=== PATIENT | male | born 1985 | race Caucasian/White ===

== ENCOUNTER 2025-01-29 08:23 | Emergency (ER) | payer MEDICAID ==
[~2025-01-29] VITALS: Ht 180.3 cm; Wt 83.0 kg
[2025-01-29 08:35] VITALS: O2SAT 98
[2025-01-29 09:05] LABS: BASOPHILS % 0.3 % (0.0-2.0); EOSINOPHILS % 1.4 % (0.0-5.0); HEMATOCRIT. 45.7 % (42.0-52.0); LYMPHOCYTES % 12.2 % (20.0-50.0); MEAN CORPUSCULAR HEMOGLOBIN 29.5 pg (28.0-32.0); MEAN CORPUSCULAR HGB CONC 32.8 g/dL (31.0-37.0); MEAN CORPUSCULAR VOLUME 89.9 fL (80.0-94.0); MEAN PLATELET VOLUME 7.8 fl (7.4-10.4); MONOCYTES % 8.6 % (2.0-8.0); NEUTROPHILS % 77.5 % (40.0-76.0); PLATELET 225 x1000/uL (130-400); RED BLOOD CELL COUNT 5.08 mill/uL (4.7-6.1); RED CELL DISTRIBUTION WIDTH 13.6 % (11.6-14.6); WHITE BLOOD COUNT 6.1 x1000/uL (4.5-11.0)
[2025-01-29 09:09] LABS: CARBON DIOXIDE 28 mEq/L (21-32); CHLORIDE 104 mEq/L (98-107); POTASSIUM 4.1 mEq/L (3.5-5.1); SODIUM 140 mEq/L (136-145)
[2025-01-29 09:10] LABS: CALCIUM 9.3 mg/dL (8.7-10.4)
[2025-01-29 09:15] LABS: CREATININE 0.9 mg/dL (0.6-1.3); GLUCOSE 122 mg/dL (70-105); UREA NITROGEN BLOOD 9 mg/dL (9-23)
[2025-01-29] MEDS: MAGNESIUM/ALUMINUM HYDROXIDE/SIMETHICONE 30ML UDC PO ONE (09:32)
[2025-01-29] MEDS ORDERED: DICY-18 MT (09:49)
[2025-01-29] MEDS ORDERED: MAG-55 MT (09:49)
[2025-01-29] MEDS ORDERED: PANT40SU MT (09:49)
[2025-01-29 10:32] VITALS: BP 130/70; PULSE 98; RESP 18; TEMP 36.8; O2SAT 98
== END 2025-01-29 10:32 | disposition home or self-care (01) ==
LOC: ER 08:23
DX: R10.12 Left upper quadrant pain (principal); Z79.899 Other long term (current) drug therapy
CPT/HCPCS: 36415; 80048; 85025; 99283